=== PATIENT | female | born 1980 | race American Indian/Alaskan Native ===

== ENCOUNTER 2017-03-16 09:52 | Emergency (ER) | payer BC, OTHER ==
[2017-03-16 10:28] VITALS: BP 114/65
[2017-03-16 10:45] LABS: Bilirubin,Urine NEG (Negative); Blood,Urine NEG (Negative); Ketones,Urine NEG (Negative); Leukocyte Esterase,Urine NEG (Negative); Mucus,Urine FEW /HPF; Nitrite,Urine POS (Negative); Protein,Urine <15 mg/dL mg/dL (Negative)
[2017-03-16] MEDS ORDERED: ROCEPHIN/NS 1 GM/50 ML 1 GM/50 ML BAG IV ONE (11:28)
[2017-03-16] MEDS ORDERED: NACL 0.9% 1000 ML 1,000 ML IV ONE (11:28)
[2017-03-16] MEDS ORDERED: NORCO 5/325 PO ONE (11:28)
--- NOTE | 2017-03-16 11:30 | Emergency Department Report ---
ED Back Pain/Injury HPI - General Chief Complaint: Back Pain/Injury Stated Complaint: POSS KIDNEY INFECTION Time Seen by Provider: 03/16/17 11:12 Source: patient Limitations: No Limitations - History of Present Illness Initial Comments: pt is a 36 y/o aaf with nmn P2, g2, a0, LMP 3 months isma IUD, pt presents for bilat low back pain tx'd 2 weeks ago for UTI rx macrobid did not complete rx , pt advises abdominal pain with n/v and low grade fever 101.4 f oral subjective, pt does endorse urinary frequency and urgency , there is no vaginal discharge no rash lesions no pelvic pain. MD Complaint: back pain Onset/Timin -: week(s) Similar Symptoms Previously: Yes Place: home Radiation: none Severity: moderate Severity scale (0 -10): 5 Quality: sharp Consistency: constant Associated Symptoms: fever/chills, nausea/vomiting. denies: weakness, numbness , diaphoresis, incontinence, constipation, headaches, rash, seizure, shortness of breath, syncope - Related Data Previous Rx's Medication Instructions Recorded Last Taken Type Fluconazole [Diflucan TAB] 150 mg PO ONCE #2 tablet 03/16/17 Unknown Rx Ibuprofen [Motrin 800 MG tab] 800 mg PO Q8HR PRN #30 tablet 03/16/17 Unknown Rx Levofloxacin [Levaquin TAB] 500 mg PO QDAY #7 tablet 03/16/17 Unknown Rx Allergies Allergy/AdvReac Type Severity Reaction Status Date / Time No Known Allergies Allergy Unverified 03/16/17 10:28 ED Review of Systems ROS: Stated complaint: POSS KIDNEY INFECTION Other details as noted in HPI Constitutional: denies: chills, fever Eyes: denies: eye pain, eye discharge, vision change ENT: denies: ear pain, throat pain Respiratory: denies: cough, shortness of breath, wheezing Cardiovascular: denies: chest pain, palpitations Endocrine: no symptoms reported Gastrointestinal: denies: abdominal pain, nausea, diarrhea Genitourinary: urgency, dysuria, frequency. denies: hematuria, discharge, abnormal menses, dyspareunia Musculoskeletal: back pain Skin: denies: rash, lesions Neurological: denies: headache, weakness, paresthesias Psychiatric: denies: anxiety, depression Hematological/Lymphatic: denies: easy bleeding, easy bruising ED Past Medical Hx - Past Medical History Previous Medical History?: No - Surgical History Past Surgical History?: No - Social History Smoking Status: Never Smoker Substance Use Type: Alcohol - Medications Home Medications: Home Medications Medication Instructions Recorded Confirmed Last Taken Type Fluconazole [Diflucan TAB] 150 mg PO ONCE #2 tablet 03/16/17 Unknown Rx Ibuprofen [Motrin 800 MG tab] 800 mg PO Q8HR PRN #30 tablet 03/16/17 Unknown Rx Levofloxacin [Levaquin TAB] 500 mg PO QDAY #7 tablet 03/16/17 Unknown Rx ED Physical Exam - General Limitations: No Limitations General appearance: alert, in no apparent distress - Head Head exam: Present: atraumatic, normocephalic - Eye Eye exam: Present: normal appearance - ENT ENT exam: Present: mucous membranes moist - Neck Neck exam: Present: normal inspection - Respiratory Respiratory exam: Present: normal lung sounds bilaterally. Absent: respiratory distress - Cardiovascular Cardiovascular Exam: Present: regular rate, normal rhythm. Absent: systolic murmur, diastolic murmur, rubs, gallop - GI/Abdominal GI/Abdominal exam: Present: soft, normal bowel sounds. Absent: distended, tenderness, guarding, rebound, rigid, organomegaly, mass, bruit, pulsatile mass , hernia - Rectal Rectal exam: Present: deferred - Extremities Exam Extremities exam: Present: normal inspection - Back Exam Back exam: Present: full ROM, tenderness, CVA tenderness (R), CVA tenderness (L) . Absent: muscle spasm, paraspinal tenderness, vertebral tenderness, rash noted - Neurological Exam Neurological exam: Present: alert, oriented X3, normal gait, reflexes normal - Psychiatric Psychiatric exam: Present: normal affect - Skin Skin exam: Present: warm, dry, intact, normal color. Absent: rash ED Course Vital Signs 03/16/17 03/16/17 03/16/17 10:22 12:18 13:18 Temperature 97.7 F Pulse Rate 110 H Respiratory 16 16 16 Rate Blood Pressure 114/65 O2 Sat by Pulse 97 Oximetry ED Medical Decision Making - Lab Data Result diagrams: 03/16/17 12:05 03/16/17 12:05 Laboratory Tests 03/16/17 03/16/17 03/16/17 10:24 12:05 12:05 WBC 17.3 H RBC 4.28 Hgb 11.9 Hct 37.9 MCV 88 MCH 28 MCHC 32 RDW 12.3 L Plt Count 208 Seg Neutrophils % Bowstring Maker Sodium 139 Potassium 3.8 Chloride 99.6 Carbon Dioxide 23 Anion Gap 20 BUN 10 Creatinine 1.0 Estimated GFR > 60 BUN/Creatinine Ratio 10.00 Glucose 92 Calcium 8.8 Total Bilirubin 0.90 AST 15 ALT 11 Alkaline Phosphatase 55 Total Protein 7.5 Albumin 3.8 L Albumin/Globulin Ratio 1.0 Urine Color [place] Urine Turbidity Clear Urine pH 5.0 Ur [place] 1.010 Urine Protein <15 mg/dl Urine Glucose (UA) 50 Urine Ketones Neg Urine Blood Neg Urine Nitrite Pos Urine Bilirubin Neg Urine Urobilinogen 2.0 Ur Leukocyte Esterase Neg Urine WBC (Auto) 15.0 H Urine RBC (Auto) 1.0 Urine Mucus Few Urine HCG, Qual Negative - Medical Decision Making pt is a 36 y/o aaf with nmn P2, g2, a0, LMP 3 months isma IUD, pt presents for bilat low back pain tx'd 2 weeks ago for UTI rx macrobid did not complete rx , pt advises abdominal pain with n/v and low grade fever 101.4 f oral subjective, pt does endorse urinary frequency and urgency , there is no vaginal discharge no rash lesions no pelvic pain. exam: abd: v/s x 4 qds abd soft nontender no rebound no bruit no hernia no cva tenderness pt denies vagina pain no pelvic no vaginal discharge. There is no nausea no vomiting no abdominal or back pain at this time, pt defers vaginal exam and refuses STI cultures, as she is an employee here and desires to follow up with [employer] if necessary, pt advises symptoms are resolving, there is no bleeding or hematuria v/s noted no fever mild tachycardia , UA: bacteria and nitrates, wbc: wbc 17.5, cmp: normal, hcg: negative, will treat for UTI v/s Pyelo however bun / creatanine are normal no blood in urine , no cva tenderness and patient is afebrile at this time , not likley pyelonephritis. plan, rocephin iv, NS x 1 liter, repeat vital signs, dc with levaquin po daily x 7 days discussed same with patient , patient verbalized agreement and understanding of discharge plan. pt will follow up with primary care doctor in 3 days. Critical care attestation.: If time is entered above; I have spent that time in minutes in the direct care of this critically ill patient, excluding procedure time. ED Disposition Clinical Impression: UTI (urinary tract infection) Qualifiers: Urinary tract infection type: acute cystitis Hematuria presence: without hematuria Qualified Code(s): N30.00 - Acute cystitis without hematuria Disposition: TO HOME OR SELFCARE Is pt being admited?: No Does the pt Need Aspirin: No Condition: Good Instructions: Urinary Tract Infection in Women (ED) Prescriptions: Fluconazole [Diflucan TAB] 150 mg PO ONCE #2 tablet Ibuprofen [Motrin 800 MG tab] 800 mg PO Q8HR PRN #30 tablet PRN Reason: Pain Levofloxacin [Levaquin TAB] 500 mg PO QDAY #7 tablet Referrals: PRIMARY CARE, [Primary Care Provider] - 3-5 Days Forms: Work/School Release Form(ED) Time of Disposition: 12:59
[2017-03-16] MEDS ORDERED: MOTRIN PO ONE (12:05)
[2017-03-16 12:24] LABS: Hematocrit 37.9 % (30.3-42.9); Hemoglobin 11.9 gm/dl (10.1-14.3); Mean Corpuscular HGB Conc 32 % (30-34); Mean Corpuscular Hemoglobin 28 pg (28-32); Mean Corpuscular Volume 88 fl (79-97); Platelet Count 208 K/mm3 (140-440); Red Blood Count 4.28 M/mm3 (3.65-5.03); Red Cell Distribution Width 12.3 % (13.2-15.2); White Blood Count 17.3 K/mm3 (4.5-11.0)
[2017-03-16 12:42] LABS: Alanine Aminotransferase 11 units/L (7-56); Albumin 3.8 g/dL (3.9-5); Alkaline Phosphatase 55 units/L (35-129); Anion Gap 20 mmol/L; Blood Urea Nitrogen 10 mg/dL (7-17); Calcium 8.8 mg/dL (8.4-10.2); Carbon Dioxide 23 mmol/L (22-30); Chloride 99.6 mmol/L (98-107); Glucose 92 mg/dL (65-100); Potassium 3.8 mmol/L (3.6-5.0); Sodium 139 mmol/L (137-145); Total Protein 7.5 g/dL (6.3-8.2)
[2017-03-16 13:09] LABS: Basophils % (Manual) 0 % (0.0-1.8); Blastocytes % (Manual) 0 %; Eosinophils % (Manual) 0 % (0.0-4.3)
[2017-03-16 13:10] LABS: Diff Status Complete; RBC Morphology Normal
== END 2017-03-16 13:31 | disposition home or self-care (01) ==
LOC: ED 09:52
DX: N30.00 Acute cystitis without hematuria (principal)
CPT/HCPCS: 36415; 80053; 81001; 81025; 85007; 85025; 96365; 99283; J0696; J7030